=== PATIENT | male | born 1965 | race Caucasian/White ===

== ENCOUNTER 2024-02-11 08:27 | Day surgery (SDC) | payer MEDICAID ==
[~2024-02-11 08:27] MED LIST: Metoclopramide 10 MG/2 ML SDV IV PRN
[2024-02-11] MEDS: Sodium Chloride 0.9% 1,000 ML IV SCH (08:53)
[2024-02-11] MEDS ORDERED: Propofol 200 MG/20 ML SDV ONE (09:45)
== END 2024-02-11 10:31 | disposition home or self-care (01) ==
LOC: LB.SDS 08:27
PROVIDERS: ATTEND Surgery
DX: Z12.11 Encounter for screening for malignant neoplasm of colon (principal); D12.3 Benign neoplasm of transverse colon; K63.5 Polyp of colon; K57.30 Diverticulosis of large intestine without perforation or abscess without bleeding; F17.200 Nicotine dependence, unspecified, uncomplicated; Z79.899 Other long term (current) drug therapy
CPT/HCPCS: 88305; J2704; J7030

== ENCOUNTER 2024-07-06 08:07 | Emergency (ER) | payer MEDICAID ==
[2024-07-06] MEDS ORDERED: Naloxone 2 MG/2 ML Syringe IVPUSH PRN (08:43)
[2024-07-06] MEDS: HYDROmorphone 1 MG/ML Syringe IVPUSH ONE (08:48)
[2024-07-06] MEDS ORDERED: Sodium Chloride 0.9% 10 ML Syringe FLUSH PRN (11:59)
== END 2024-07-06 10:55 | disposition home or self-care (01) ==
LOC: LB.ED 08:07
DX: C11.9 Malignant neoplasm of nasopharynx, unspecified (principal); Z79.899 Other long term (current) drug therapy; Z87.891 Personal history of nicotine dependence
CPT/HCPCS: 70450; 70486; 70490; 96374; 99283-25; J1171